=== PATIENT | female | born 1985 | race Caucasian/White ===

== ENCOUNTER → 2020-07-13 | Outpatient (CLI) | payer BC ==
--- NOTE | 2020-07-13 11:01 | RAD ---
Complete abdominal ultrasound 07/13/2020 INDICATION: Right upper abdominal pain COMPARISON STUDY: None Discussion: Ultrasound evaluation of the abdomen was performed. Static images are submitted to PACS. Visualized portions of the pancreas are unremarkable. Visualized portions of the aorta and IVC are unremarkable. The liver is normal in size measuring approximately 16 cm longitudinally. No focal hepatic lesions are seen. No intrahepatic biliary dilatation is seen. Portal vein appears grossly patent with flow in the normal direction. Shadowing stone noted in the gallbladder lumen. No evidence of wall thickening or pericholecystic fluid is seen. Gallbladder otherwise unremarkable. Right kidney is normal in appearance measuring 10.5 cm longitudinally. Portions of the inferior pole are somewhat obscured secondary to overlying structures. The common bile duct is top normal diameter measuring 5 mm. Spleen is normal in size measuring 9.5 cm longitudinally. Left kidney is normal in appearance measuring 10.4 cm in length. IMPRESSION: Cholelithiasis without evidence of cholecystitis Electronically signed by: Daniel Godfrey MD (07/13/2020 10:58 AM) [id number]
== END ==
LOC: US 08:57
PROVIDERS: ATTEND Family Medicine
DX: K80.20 Calculus of gallbladder without cholecystitis without obstruction (principal)
CPT/HCPCS: 76700

== ENCOUNTER 2020-07-14 11:10 | Emergency (ER) | payer BC ==
[~2020-07-14] VITALS: Ht 160 cm; Wt 79.0 kg
[2020-07-14 11:26] VITALS: BP 139/90
--- NOTE | 2020-07-14 11:50 | PHYS DOC ---
General Adult EDM: Chief Complaint: ABDOMINAL PAIN HPI: HPI: 35-year-old female presents with epigastric abdominal pain. The patient had an ultrasound yesterday and was told she has gallstones. She has had difficulty with epigastric abdominal pain every time she eats or drinks for a couple weeks. Her primary physician sent her here because he did not want her abdominal pain to get worse. She needs surgery. Patient denies fever or chills. She tells me that she can tolerate the pain, right colostomy care she does not have an urgent surgical issue with her gallbladder. Review of Systems: Review of Systems: Constitutional: Denies fever or chills Eyes: Denies change in visual acuity HENT: Denies nasal congestion or sore throat Respiratory: Denies cough or shortness of breath Cardiovascular: Denies chest pain or edema GI: Epigastric abdominal pain, nausea, vomiting. Denies bloody stools or diarrh ea : Denies dysuria Musculoskeletal: Denies back pain or joint pain Integument: Denies rash Neurologic: Denies headache, focal weakness or sensory changes Endocrine: Denies polyuria or polydipsia Lymphatic: Denies swollen glands Psychiatric: Denies depression or anxiety Heart Score: Risk Factors: Risk Factors: DM, Current or recent (<one month) smoker, HTN, HLP, family history of CAD, obesity. Risk Scores: Score 0 - 3: 2.5% MACE over next 6 weeks - Discharge Home Score 4 - 6: 20.3% MACE over next 6 weeks - Admit for Clinical Observation Score 7 - 10: 72.7% MACE over next 6 weeks - Early Invasive Strategies Physical Exam: PE: Constitutional: Well developed, well nourished, obese, no acute distress, non- toxic appearance. [] HENT: Normocephalic, atraumatic, bilateral external ears normal, oropharynx moist, no oral exudates, nose normal. [] Eyes: PERRLA, EOMI, conjunctiva normal, no discharge. [] Neck: Normal range of motion, no tenderness, supple, no stridor. [] Cardiovascular: Heart rate regular rhythm, no murmur [] Lungs & Thorax: Bilateral breath sounds clear to auscultation [] Abdomen: Bowel sounds normal, soft, epigastric abdominal tenderness, no masses, no pulsatile masses. [] Skin: Warm, dry, no erythema, no rash. [] Back: No tenderness, no CVA tenderness. [] Extremities: No tenderness, no cyanosis, no clubbing, ROM intact, no edema. [] Neurologic: Alert and oriented X 3, normal motor function, normal sensory function, no focal deficits noted. [] Psychologic: Affect normal, judgement normal, mood normal. [] EKG: EKG: [] Radiology/Procedures: Radiology/Procedures: [] Impressions: CT ABD PELV W/ IV CONTRST ONLY History: Reason: elevated liver enzymes / Spl. Instructions: / History: Technique: After the administration of intravenous contrast, CT imaging was performed of the abdomen and pelvis. Multiplanar images are reviewed. Exposure: One or more of the following individualized dose reduction techniques were utilized for this examination: 1. Automated exposure control 2. Adjustment of the mA and/or kV according to patient size 3. Use of iterative reconstruction technique. Comparison: None Findings: Lower chest: No consolidation or pleural effusion. Abdomen and pelvis: Mild intrahepatic biliary ductal dilatation. Mildly enlarged common bile duct measures 8 mm distal common bile duct tapers normally. Increased density within the gallbladder, may indicate gallbladder sludge. The gallbladder is mildly distended. The spleen, adrenal glands, and pancreas are unremarkable. Unremarkable appearance of the kidneys. No hydronephrosis. Normal appendix. Moderate proximal colonic stool burden. No evidence of bowel obstruction. Numerous ovarian follicles bilaterally noted. No pathologic lymphadenopathy. No ascites. Small fat-containing umbilical hernia. Bones: No pathologic osseous lesions. Impression: 1. Mildly distended gallbladder with increased density, may represent gallbladder sludge. Recommend ultrasound to further evaluate. 2. Mild intrahepatic biliary ductal dilatation with borderline enlarged common bile duct. Recommend correlation with biliary lab values. If persistent clinical concern, MRI/MRCP can further evaluate. Electronically signed by: Dakota Cárdenas DO (07/14/2020 1:25 PM) [id number] DICTATED AND SIGNED BY: DAKOTA CÁRDENAS DO DATE: 07/14/20 [id number] CC: ANH DASH RYAN DO ~ Course & Med Decision Making: Course & Med Decision Making Pertinent Labs and Imaging studies reviewed. (See chart for details) The patient has elevated liver enzymes including an elevated bilirubin. I have ordered a CT scan as I am concerned for common bile duct obstruction. I reviewed her ultrasound from yesterday and it did not appear to be infected or obstructed at that time. CT scan shows possible blockage as the gallbladder is more dilated and the common bile duct is dilated. I explained these findings to the patient. She is in agreement with admission to the hospital. I am planning to transfer her to [facility]. Dr. Gutierres has accepted her for transfer and admission. She will likely have an MRCP. Prior to transfer, the patient discovered that her insurance does not cover [facility]. She is covered at [facility]. We contacted them and Dr. Cornejo has accepted the patient for admission and transfer to [facility]. She will go by private vehicle as EMS is very backed up right now. I believe this is reasonable. Her IV was removed prior to transfer. [] Dragon Disclaimer: Bennett Disclaimer: This electronic medical record was generated, in whole or in part, using a voice recognition dictation system. Departure Departure: Impression: Primary Impression: Bile duct stone with obstruct Qualified Codes: K80.51 - Calculus of bile duct without cholangitis or cholecystitis with obstruction Disposition: 02 DC/TRF OTHER SHORT TERM HOS Admitting Physician: Rosina Gutierres Condition: STABLE Referrals: ANH DASH (PCP) DANIEL YEH DO Jul 14, 2020 11:49
[2020-07-14 12:23] LABS: BASO % 1 % (0-3); EOS # 0.1 x10^3/uL (0.0-0.7); EOS % 2 % (0-3); HEMATOCRIT 40.5 % (36.0-47.0); HEMOGLOBIN 13.5 g/dL (12.0-15.5); LYMPH # 1.4 x10^3/uL (1.0-4.8); LYMPH % 23 % (24-48); MEAN CORPUSCULAR HEMOGLOBIN 29 pg (25-35); MEAN CORPUSCULAR HGB CONC 33 g/dL (31-37); MEAN CORPUSCULAR VOLUME 88 fL (79-100); MONO # 0.5 x10^3/uL (0.0-1.1); MONO % 9 % (0-9); NEUT # 4.1 x10^3uL (1.8-7.7); NEUT % 66 % (31-73); PLATELET COUNT 307 x10^3/uL (140-400); RED BLOOD COUNT 4.62 x10^6/uL (3.50-5.40); RED CELL DISTRIBUTION WIDTH 13.1 % (11.5-14.5); WHITE BLOOD COUNT 6.3 x10^3/uL (4.0-11.0)
[2020-07-14 12:24] LABS: CALCIUM 9.5 mg/dL (8.5-10.1); CREATININE 0.8 mg/dL (0.6-1.0); GFR 82.1
[2020-07-14 12:30] LABS: TOTAL BILIRUBIN 2.7 mg/dL (0.2-1.0)
[2020-07-14] MEDS ORDERED: IOHEXOL 300 MG/ML 75 ML VIAL. IV ONE (13:00)
--- NOTE | 2020-07-14 13:28 | RAD ---
CT ABD PELV W/ IV CONTRST ONLY History: Reason: elevated liver enzymes / Spl. Instructions: / History: Technique: After the administration of intravenous contrast, CT imaging was performed of the abdomen and pelvis. Multiplanar images are reviewed. Exposure: One or more of the following individualized dose reduction techniques were utilized for this examination: 1. Automated exposure control 2. Adjustment of the mA and/or kV according to patient size 3. Use of iterative reconstruction technique. Comparison: None Findings: Lower chest: No consolidation or pleural effusion. Abdomen and pelvis: Mild intrahepatic biliary ductal dilatation. Mildly enlarged common bile duct measures 8 mm distal common bile duct tapers normally. Increased density within the gallbladder, may indicate gallbladder sludge. The gallbladder is mildly distended. The spleen, adrenal glands, and pancreas are unremarkable. Unremarkable appearance of the kidneys. No hydronephrosis. Normal appendix. Moderate proximal colonic stool burden. No evidence of bowel obstruction. Numerous ovarian follicles bilaterally noted. No pathologic lymphadenopathy. No ascites. Small fat-containing umbilical hernia. Bones: No pathologic osseous lesions. Impression: 1. Mildly distended gallbladder with increased density, may represent gallbladder sludge. Recommend ultrasound to further evaluate. 2. Mild intrahepatic biliary ductal dilatation with borderline enlarged common bile duct. Recommend correlation with biliary lab values. If persistent clinical concern, MRI/MRCP can further evaluate. Electronically signed by: Dakota Cárdenas DO (07/14/2020 1:25 PM) [id number]
== END 2020-07-14 15:52 | disposition short-term general hospital (02) ==
LOC: ER 11:10
DX: K80.51 Calculus of bile duct without cholangitis or cholecystitis with obstruction (principal)
CPT/HCPCS: 36415; 74177; 80053; 85025; 99285; Q9967